=== PATIENT | male | born 2000 | race Caucasian/White ===

== ENCOUNTER 2023-08-28 23:43 | Emergency (ER) | payer BC ==
[~2023-08-28] VITALS: Ht 175.3 cm; Wt 77.3 kg
[2023-08-28 23:58] VITALS: TEMP 98.6
[2023-08-29] MEDS ORDERED: Acetaminophen 500 MG TAB PO ONE (00:30)
[2023-08-29 00:50] VITALS: BP 118/78; PULSE 81
== END 2023-08-29 00:50 | disposition home or self-care (01) ==
LOC: COL.ER 23:43
DX: S09.90XA Unspecified injury of head, initial encounter (principal); W18.30XA Fall on same level, unspecified, initial encounter; W22.09XA Striking against other stationary object, initial encounter; Y93.74 Activity, frisbee